=== PATIENT | male | born 1955 | race Caucasian/White ===

== ENCOUNTER 2019-02-20 12:42 | Emergency (ER) | payer MEDICAID ==
[~2019-02-20] VITALS: Ht 188 cm; Wt 120.2 kg
[2019-02-20 12:51] VITALS: Ht 188 cm; Wt 120.2 kg
[2019-02-20 16:16] VITALS: BP 142/86
== END 2019-02-20 16:16 | disposition home or self-care (01) ==
LOC: ED 12:42
DX: E11.9 Type 2 diabetes mellitus without complications (principal); I50.9 Heart failure, unspecified; I11.0 Hypertensive heart disease with heart failure; I48.91 Unspecified atrial fibrillation; Z76.0 Encounter for issue of repeat prescription